=== PATIENT | female | born 1995 | race Caucasian/White ===

== ENCOUNTER 2017-07-17 09:07 | Day surgery (SDC) | payer OTHER ==
[~2017-07-17] VITALS: Ht 170.2 cm; Wt 70.3 kg
[~2017-07-17 09:07] MED LIST: BUPIVACAINE/PF 0.5% ONE
[2017-07-17] MEDS ORDERED: LACTATED RINGERS 1,000 ML IV SCH (09:45)
[2017-07-17] MEDS ORDERED: [UNRECOGNIZED DRUG - OTHER] PO (09:47)
[2017-07-17 09:48] VITALS: BP 109/75
[2017-07-17] MEDS ORDERED: PLEASE ENTER HEIGHT AND WEIGHT MC SCH (10:00)
[2017-07-17 10:05] LABS: HCG UR LOT HCG7030192
[2017-07-17 10:13] LABS: HCG UR OBC PASS
[2017-07-17] MEDS ORDERED: FENTANYL PF 100 MCG/2ML ONE ×2 (10:20)
[2017-07-17] MEDS ORDERED: MIDAZOLAM 1 MG/ML, 2ML ONE (10:21)
[2017-07-17] MEDS ORDERED: ONDANSETRON 2MG/ML, 2ML ONE (10:23)
[2017-07-17] MEDS ORDERED: PROPOFOL 10 MG/ML, 20ML ONE (10:23)
[2017-07-17] MEDS ORDERED: CEFAZOLIN 1,000 MG ONE (10:23)
[2017-07-17] MEDS ORDERED: DEXAMETHASONE 4 MG/ML, 1ML ONE (10:23)
[2017-07-17] MEDS ORDERED: LIDOCAINE 1%, 20ML ONE (10:27)
[2017-07-17] MEDS ORDERED: HYDROmorphone 1 MG/ML, 1ML IV PRN (11:00)
[2017-07-17] MEDS ORDERED: ALBUTEROL SULFATE 2.5 MG/3 ML NPPB PRN (11:00)
[2017-07-17] MEDS ORDERED: MIDAZOLAM 1 MG/ML, 2ML IV PRN (11:00)
[2017-07-17] MEDS ORDERED: METOPROLOL 1 MG/ML, 5ML IV PRN (11:00)
[2017-07-17] MEDS ORDERED: LABETALOL 5MG/ML, 20ML IV PRN (11:00)
[2017-07-17] MEDS ORDERED: DIAZEPAM 5 MG/ML, 2ML IVPush PRN (11:00)
[2017-07-17] MEDS ORDERED: hydrALAzine 20 MG/ML, 1ML IV PRN (11:00)
[2017-07-17] MEDS ORDERED: OXYcodone 5 MG/5 ML ORAL.SOL UDC PO PRN (11:00)
[2017-07-17] MEDS ORDERED: HYDROcodone/APAP 7.5-325MG/15ML UDC PO PRN (11:00)
[2017-07-17] MEDS ORDERED: ONDANSETRON 2MG/ML, 2ML IVPush PRN (11:00)
[2017-07-17] MEDS ORDERED: ACETAMINOPHEN 325 MG TABLET PO PRN (11:00)
[2017-07-17] MEDS ORDERED: PROMETHAZINE 25 MG/ML, 1ML IV PRN (11:00)
[2017-07-17] MEDS ORDERED: MEPERIDINE/PF 25MG/0.5ML IVPush PRN (11:00)
[2017-07-17] MEDS ORDERED: EPHEDRINE 50 MG/ML, 1ML IVPush PRN (11:00)
[2017-07-17] MEDS ORDERED: FENTANYL PF 100 MCG/2ML IV PRN (11:00)
== END 2017-07-17 13:10 ==
LOC: OUT 09:07 → EDSTATUS 11:00 → OUT 13:10
PROVIDERS: ATTEND Surgery
DX: D48.62 Neoplasm of uncertain behavior of left breast (principal); Z91.013 Allergy to seafood; Z91.018 Allergy to other foods
CPT/HCPCS: 19125; 19285; 81025; 88307; G0206; J0690; J1100; J2250; J2405; J2704; J3010; J3490; J7120; 76098